=== PATIENT | male | born 1940 | race Caucasian/White ===

== ENCOUNTER → 2023-01-08 13:03 | Outpatient (CLI) | payer MEDICARE, SELFPAY ==
[2023-01-11 03:28] LABS: Prostate Specific Antigen < 0.064 ng/mL (0.10-4.00)
== END ==
PROVIDERS: Referring Provider Internal Medicine Medical Oncology; Visit Provider Internal Medicine Medical Oncology
DX: C61 Malignant neoplasm of prostate (principal)
CPT/HCPCS: 36415; 84153